=== PATIENT | female | born 1975 | race Hispanic/Latino ===

== ENCOUNTER 2021-09-24 23:26 | Emergency (ER) | payer OTHER ==
[~2021-09-24] VITALS: Ht 157.5 cm; Wt 86.2 kg
[2021-09-25 00:23] VITALS: BP 124/74
[2021-09-25] MEDS ORDERED: SULF1TAB42 PO (03:05)
[2021-09-25] MEDS ORDERED: IBUPROFEN 600 MG TABLET PO ONE (03:30)
[2021-09-25] MEDS ORDERED: SULFAMETHOX-TMP DS 800/160 TAB PO ONE (03:30)
== END 2021-09-25 03:37 | disposition home or self-care (01) ==
LOC: EDH 23:26
DX: L72.3 Sebaceous cyst (principal); L08.9 Local infection of the skin and subcutaneous tissue, unspecified; E11.9 Type 2 diabetes mellitus without complications
CPT/HCPCS: 10061

== ENCOUNTER 2024-03-20 22:19 | Emergency (ER) | payer SELFPAY ==
[~2024-03-20] VITALS: Ht 152.4 cm; Wt 98.9 kg
[~2024-03-20 22:19] MED LIST: SULF1TAB42 PO
[2024-03-20] MEDS: metoCLOPRAmide 10 MG/2 ML VIAL IVP STA (22:55)
[2024-03-20] MEDS: ketOROlac 15MG/ML VIAL (15MG/ML) IV STA (22:56)
[2024-03-20] MEDS: 0.9%NACL 1000ML 1,000 ML IV ONE (22:56)
[2024-03-21] MEDS ORDERED: IBUP-2077 PO (00:05)
[2024-03-21 00:13] VITALS: BP 128/73; PULSE 74; RESP 18; TEMP 98.4; O2SAT 99
== END 2024-03-21 00:15 | disposition home or self-care (01) ==
LOC: EDH 22:19
DX: R51.9 Headache, unspecified (principal); E11.9 Type 2 diabetes mellitus without complications; Z79.899 Other long term (current) drug therapy; Z90.710 Acquired absence of both cervix and uterus; Z98.890 Other specified postprocedural states
CPT/HCPCS: 99284; 96374; 96375; J7030; J2765; J1885